=== PATIENT | male | born 1990 | race Caucasian/White ===

== ENCOUNTER 2018-02-22 14:49 | Inpatient (IN) | payer OTHER ==
--- NOTE | 2018-02-22 16:28 | RAD ---
Date of service: 02/22/2018 HISTORY: SOB COMPARISON: No prior. TECHNIQUE: Chest PA and lateral FINDINGS: LUNGS: No active pulmonary disease. PLEURA: No significant pleural effusion identified. No pneumothorax apparent. CARDIOVASCULAR: No aortic atherosclerotic calcification present. Normal cardiac size. No pulmonary vascular congestion. OSSEOUS STRUCTURES: No significant abnormalities. VISUALIZED UPPER ABDOMEN: Normal. OTHER FINDINGS: None. IMPRESSION: No active disease.
[2018-02-22 16:48] LABS: BASO % 0.6 % (0.0-2.0); HEMOGLOBIN 15.2 g/dL (12.0-18.0); LYMPH # 0.9 K/uL (1.0-4.3); LYMPH % 13.2 % (20.0-40.0); MEAN CELL VOLUME 80.5 fL (80.0-94.0); MEAN CORPUSCULAR HEMOGLOBIN 27.8 pg (27.0-31.0); MEAN CORPUSCULAR HGB CONC 34.5 g/dL (33.0-37.0); MEAN PLATELET VOLUME 6.9 fL (7.2-11.7); MONO # 0.5 K/uL (0.0-0.8); MONO % 6.8 % (0.0-10.0); NEUT # 5.7 K/uL (1.8-7.0); NEUT % 79.4 % (50.0-75.0); NRBC % 0.3 % (0.0-2.0); RBC 5.48 Mil/uL (4.40-5.90); RED CELL DISTRIBUTION WIDTH 12.8 % (11.5-14.5); WHITE BLOOD COUNT 7.2 K/uL (4.8-10.8)
[2018-02-22 16:50] LABS: URINE BILIRUBIN NEGATIVE (NEGATIVE); URINE BLOOD 1+ (NEGATIVE); URINE CLARITY Clear (Clear); URINE COLOR Yellow (YELLOW); URINE GLUCOSE (UA) NORMAL (Normal); URINE LEUKOCYTE ESTERASE NEG Leu/uL (Negative); URINE PROTEIN NEGATIVE (NEGATIVE)
[2018-02-22 17:05] LABS: ALB/GLOB RATIO 1.4 (1.0-2.1); ALBUMIN 4.5 g/dL (3.5-5.0); ALT/SGPT 69 U/L (21-72); AST/SGOT 63 U/L (17-59); BLOOD UREA NITROGEN 14 mg/dL (9-20); CALCIUM 8.9 mg/dl (8.6-10.4); GFR NON-AFRICAN AMERICAN > 60
--- NOTE | 2018-02-22 17:09 | C.PDOC ---
History Of Present Illness Patient is a 27 year old male who presents to the ED for evaluation of an undulating fever with temperature spiking to 104 degrees for the past 10-14 days. Patient was in [place] 2 weeks prior and lives in an edemic area known for typhoid and malaria. He was seen at his PCP Dr. Abreu's office earlier today where his fever spiked to 103 degree and he was instructed to come to the ED. Patient denies any cough, SOB, nausea, vomiting, diarrhea, headache, sore throat, or CP. Time Seen by Provider: 02/22/18 15:55 Chief Complaint (Nursing): Fever History Per: Patient History/Exam Limitations: no limitations Onset/Duration Of Symptoms: Days (10-14) Current Symptoms Are (Timing): Still Present Associated Symptoms: Fever. denies: Chills, Cough, Nausea, Vomiting, Diarrhea Recent travel outside of the [place]: Yes ([place]) Additional History Per: Patient Past Medical History Reviewed: Historical Data, Nursing Documentation, Vital Signs Vital Signs: Last Vital Signs Temp 99.5 F 02/22/18 15:15 Pulse 110 H 02/22/18 15:15 Resp 18 02/22/18 15:15 BP 115/77 02/22/18 15:15 Pulse Ox 99 02/22/18 15:15 - Medical History PMH: No Chronic Diseases Surgical History: No Surg Hx Family History: States: Unknown Family Hx - Social History Hx Alcohol Use: No Hx Substance Use: No Review Of Systems Constitutional: Positive for: Fever. Negative for: Chills Cardiovascular: Negative for: Chest Pain Respiratory: Negative for: Cough, Shortness of Breath, Other (sore throat ) Gastrointestinal: Negative for: Nausea, Vomiting, Abdominal Pain, Diarrhea Neurological: Negative for: Headache Physical Exam - Physical Exam Appears: Non-toxic, No Acute Distress, Other (dark skin male ) Skin: Normal Color, Warm, Dry Head: Atraumatic, Normacephalic Eye(s): bilateral: Normal Inspection, PERRL, EOMI Oral Mucosa: Moist Neck: Supple Chest: Symmetrical Cardiovascular: Rhythm Regular Respiratory: Normal Breath Sounds, No Rales, No Rhonchi, No Wheezing Gastrointestinal/Abdominal: Soft Extremity: Normal ROM Neurological/Psych: Oriented x3, Normal Speech, Normal Cognition Gait: Steady ED Course And Treatment - Laboratory Results Result Diagrams: 02/22/18 16:40 02/22/18 16:40 Lab Interpretation: Abnormal (trop 0.2610, BNP 757) ECG: Interpreted By Me ECG Rhythm: Sinus Tachycardia ECG Interpretation: Abnormal Rate From EC O2 Sat by Pulse Oximetry: 99 Pulse Ox Interpretation: Normal - Radiology CXR: Interpreted by Me CXR Interpretation: Yes: No Acute Disease Reevaluation Time: 17:09 Reassessment Condition: Improved - Physician Consult Information Outcome Of Conversation: 1700: d/w anita Marques to d/c on Cipro PO and opt f/u of thin smear and salmonella titers. 1830: d/w anita Walker to admit with positive trop/bnp Medical Decision Making Medical Decision Making: suspect malaria/babesiosis or typhoid fever, likely due to endemic area immigrated 2 wks ago + trop/bnp suspicious for endocarditis. Disposition Doctor Will See Patient In The: Hospital Counseled Patient/Family Regarding: Studies Performed, Diagnosis - Disposition Referrals: [facility] [Outside] [facility] [Outside] [facility] [Outside] Lorie Abreu MD [Staff Provider] - Disposition: HOME/ ROUTINE Disposition Time: 17:11 Condition: GOOD Additional Instructions: tylenol 1000 mg or Motrin/Advil 600 mg every 6 hours as needed for fevers Continue Cipro 750 mg twice a day for 2 weeks follow-up Blood cultures, blood smears for parasites and Salmonella titers w Dr. Abreu's office. Prescriptions: Ciprofloxacin HCl [Cipro] 750 mg PO BID 14 Days tablet Instructions: Fever of Unknown Origin (DC), Typhoid and Paratyphoid Fever (DC), Malaria (DC) Forms: [employer] ([place]) - Clinical Impression Clinical Impression: Undulant fever, NSTEMI (non-ST elevated myocardial infarction) - Scribe Statement The provider has reviewed the documentation as recorded by the Scribe Provider Attestation: Lesley Ayala All medical record entries made by the Scribe were at my direction and personally dictated by me. I have reviewed the chart and agree that the record accurately reflects my personal performance of the history, physical exam, medical decision making, and the department course for this patient. I have also personally directed, reviewed, and agree with the discharge instructions and disposition.
[2018-02-22 17:31] LABS: B-TYPE NATRIURETIC PEPTIDE 757 pg/mL (0-450)
--- NOTE | 2018-02-22 21:02 | CP.PCM.HP ---
History of Present Illness - History of Present Illness History of Present Illness: Is chief complaint: Fever intermittent for 10 days duration. HPI: 27-year-old male with no significant past medical history From [place] recently weeks ago. After he came to the [place], started having some severe pain in the abdomen, nausea vomiting. He also had a fever at the time. He went to the urgent care, given antibiotic but the patient was not taking. He only taking that medicine for fever. He started having increasing fever again. Intermittent fever. Associate with chills and sweating. He also had a fever here today with the. Patient also has some headache Neck pain noted now. fever noted The past medical history No surgical history Denies any alcohol No smoking No family history A review of systems: Headache noted history of nausea vomiting noted. And recurrent fever chills no urinary discomfort. Yellow discoloration urine noted On examination: Patient is currently sweating. Chest clear Abdomen soft Nontender Edema negative Tachycardia noted. 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 cannot ruled out ?typhoid discussed with id will start antibiotic malarial smear stool w/u echo cardiology ID Present on Admission - Present on Admission Any Indicators Present on Admission: No History of DVT/PE: No History of Uncontrolled Diabetes: No Urinary Catheter: No Decubitus Ulcer Present: No Past Patient History - Past Social History Smoking Status: Never Smoked - PSYCHIATRIC Hx Substance Use: No - SURGICAL HISTORY Hx Surgeries: No Meds Home Medications: Home Medication List Medication Instructions Recorded Confirmed Type Ciprofloxacin HCl [Cipro] 750 mg PO BID 14 Days tablet 02/22/18 Rx Allergies/Adverse Reactions: Allergies Allergy/AdvReac Type Severity Reaction Status Date / Time No Known Allergies Allergy Verified 02/22/18 15:19 Results - Vital Signs Recent Vital Signs: Last Vital Signs Temp 102.4 F H 02/22/18 19:48 Pulse 92 H 02/22/18 19:48 Resp 24 02/22/18 19:48 BP 107/65 02/22/18 19:48 Pulse Ox 97 02/22/18 19:48 - Labs Result Diagrams: 02/22/18 16:40 02/22/18 16:40 Labs: Laboratory Results - last 24 hr 02/22/18 02/22/18 02/22/18 16:40 16:40 16:40 WBC 7.2 RBC 5.48 Hgb 15.2 Hct 44.1 MCV 80.5 MCH 27.8 MCHC 34.5 RDW 12.8 Plt Count 258 MPV 6.9 L Neut % (Auto) 79.4 H Lymph % (Auto) 13.2 L [place] % (Auto) 6.8 Eos % (Auto) 0.0 Baso % (Auto) 0.6 Neut # (Auto) 5.7 Lymph # (Auto) 0.9 L [place] # (Auto) 0.5 Eos # (Auto) 0.0 Baso # (Auto) 0.0 Sodium 137 Potassium 3.5 L Chloride 101 Carbon Dioxide 26 Anion Gap 14 BUN 14 Creatinine 1.0 Est GFR ( Amer) > 60 Est GFR (Non-Af Amer) > 60 Random Glucose 148 H Calcium 8.9 Total Bilirubin 1.9 H AST 63 H ALT 69 Alkaline Phosphatase 106 Troponin I 0.2610 H* NT-Pro-B Natriuret Pep 757 H Total Protein 7.8 Albumin 4.5 Globulin 3.3 Albumin/Globulin Ratio 1.4 Urine Color Yellow Urine Clarity Clear Urine pH 5.0 Ur Specific [place] 1.012 Urine Protein Negative Urine Glucose (UA) Normal Urine Ketones Negative Urine Blood 1+ H Urine Nitrate Negative Urine Bilirubin Negative Urine Urobilinogen 4.0 Ur Leukocyte Esterase Neg Urine WBC (Auto) 1 Urine RBC (Auto) 1
[2018-02-22] MEDS ORDERED: Sodium Chloride 0.9% 1,000 ML ONE (21:34)
[2018-02-22] MEDS: Sodium Chloride 0.9% 1,000 ML IV SCH (21:41)
[2018-02-22] MEDS: cefTRIAXone 2 GM IN NS 2 GM/100 ML BAG IVPB SCH (21:41)
[2018-02-22 22:15] LABS: INTRACELLULAR PARASITE NEGATIVE (NEGATIVE)
[2018-02-23 01:27] LABS: CK-MB < 0.22 ng/mL (0.0-3.38)
[2018-02-23] MEDS: Sodium Chloride 0.9% 1,000 ML IV SCH ×3 (06:56→20:26)
[2018-02-23 07:08] LABS: BASO % 0.6 % (0.0-2.0); HEMOGLOBIN 15.8 g/dL (12.0-18.0); LYMPH # 1.1 K/uL (1.0-4.3); LYMPH % 14.4 % (20.0-40.0); MEAN CELL VOLUME 80.9 fL (80.0-94.0); MEAN CORPUSCULAR HEMOGLOBIN 28.4 pg (27.0-31.0); MEAN CORPUSCULAR HGB CONC 35.1 g/dL (33.0-37.0); MEAN PLATELET VOLUME 8.1 fL (7.2-11.7); MONO # 0.6 K/uL (0.0-0.8); MONO % 8.5 % (0.0-10.0); NEUT # 5.7 K/uL (1.8-7.0); NEUT % 76.5 % (50.0-75.0); NRBC % 0.2 % (0.0-2.0); RBC 5.56 Mil/uL (4.40-5.90); RED CELL DISTRIBUTION WIDTH 12.8 % (11.5-14.5); WHITE BLOOD COUNT 7.5 K/uL (4.8-10.8)
[2018-02-23 07:24] LABS: URINE BILIRUBIN NEGATIVE (NEGATIVE); URINE BLOOD 1+ (NEGATIVE); URINE CLARITY Clear (Clear); URINE COLOR Yellow (YELLOW); URINE GLUCOSE (UA) NORMAL (Normal); URINE LEUKOCYTE ESTERASE NEG Leu/uL (Negative); URINE PROTEIN NEGATIVE (NEGATIVE)
[2018-02-23 08:14] LABS: ALB/GLOB RATIO 1.3 (1.0-2.1); ALBUMIN 4.8 g/dL (3.5-5.0); ALT/SGPT 83 U/L (21-72); AST/SGOT 78 U/L (17-59); BLOOD UREA NITROGEN 11 mg/dL (9-20); CALCIUM 8.9 mg/dl (8.6-10.4); GFR NON-AFRICAN AMERICAN > 60
--- NOTE | 2018-02-23 08:54 | CP.PCM.PN ---
Subjective - Date & Time of Evaluation Date of Evaluation: 02/23/18 Time of Evaluation: 08:52 - Subjective Subjective: Patient is morning having again fever. No nausea, no vomiting noted. Less headache. Fever of 102.3 F Plan examination: Vital signs stable otherwise. Mild tachycardia noted. Chest good air entry Regular heart sounds Soft and nontender Echocardiogram currently pending. The blood culture showing evidence of gram-negative rods in both anaerobic bottles identification pending. Currently patient is on antibiotic. Awaiting for the results of the ID. Echocardiogram will follow the patient Patient is a 27 with no past medical history admitted with febrile illness with positive blood culture, will follow the patient Objective - Vital Signs/Intake and Output Vital Signs (last 24 hours): Temp Pulse Resp BP Pulse Ox 102.1 F H 85 20 114/66 99 02/23/18 06:56 02/23/18 03:47 02/23/18 03:47 02/23/18 03:47 02/23/18 03:47 Intake and Output: 02/23/18 02/23/18 06:59 18:59 Intake Total 740 Output Total 700 Balance 40 - Medications Medications: Current Medications Acetaminophen (Tylenol 325mg Tab) 650 mg PO Q6 PRN PRN Reason: Temperature Last Admin: 02/23/18 06:56 Dose: 650 mg Ceftriaxone Sodium (Rocephin 2 Gm Ivpb) 2 gm in 100 mls @ 100 mls/hr IVPB Q12 CARIDAD; Protocol Last Admin: 02/22/18 21:41 Dose: 100 mls/hr Sodium Chloride (Sodium Chloride 0.9%) 1,000 mls @ 100 mls/hr IV .Q10H CARIDAD Last Admin: 02/23/18 06:56 Dose: 100 mls/hr Pantoprazole Sodium (Protonix Inj) 40 mg IVP DAILY CARIDAD - Labs Labs: 02/23/18 06:59 02/23/18 06:59
[2018-02-23] MEDS ORDERED: Potassium Chloride 20 mEq/15 ml LIQ UD PO ONE (09:30)
[2018-02-23] MEDS: cefTRIAXone 2 GM IN NS 2 GM/100 ML BAG IVPB SCH (10:26)
[2018-02-23] MEDS ORDERED: Amikacin Sulfate 500 MG in Sodium Chloride 0.9% 250 ML IVPB ONE (10:30)
--- NOTE | 2018-02-23 15:06 | CARD ---
APPROVED REPORT Date of service: 02/23/2018 EXAM: Two-dimensional and M-mode echocardiogram with Doppler and color Doppler. Other Information Quality : GoodRhythm : INDICATION elevated troponin / fever 2D DIMENSIONS IVSd0.9 (0.7-1.1cm)Aortic Root (2D)2.6 (2.0-3.7cm) LVDd4.4 (3.9-5.9cm)PWd0.7 (0.7-1.1cm) LA [id number] (18-58mL)LVDs2.6 (2.5-4.0cm) FS (%) 40.8 %LVEF (%)71.8 (>50%) LVEF (Navas's)70.20 %IVC0.00 cm M-Mode DIMENSIONS RVDd1.55 (2.1-3.2cm)Left Atrium (MM)3.14 (2.5-4.0cm) IVSd0.81 (0.7-1.1cm)Aortic Root2.60 (2.2-3.7cm) LVDd4.70 (4.0-5.6cm)Aortic Cusp Exc.1.97 (1.5-2.0cm) PWd0.66 (0.7-1.1cm)FS (%) 43 % LVDs2.68 (2.0-3.8cm)LVEF (%)74 (>50%) Mitral Valve MV E Ztjqivze37.4cm/sMV A Piyjtfez61.6cm/sE/A ratio1.2 TDI Lateral E' Peak V13.39cm/sMedial E' Peak V13.64cm/sE/Lateral E'6.9 E/Medial E'6.8 Tricuspid Valve TR Peak [id number]/sTR Peak Gr.[id number] LEFT VENTRICLE The left ventricle is normal size. There is normal left ventricular wall thickness. The left ventricular function is normal. The left ventricular ejection fraction is within the normal range. No regional wall motion abnormalities noted. The left ventricular diastolic function is normal. No left ventricle thrombus noted on this study. There is no ventricular septal defect visualized. There is no left ventricular aneurysm. There is no mass noted in the left ventricle. RIGHT VENTRICLE The right ventricle is normal size. There is normal right ventricular wall thickness. The right ventricular systolic function is normal. ATRIA The left atrium size is normal. The right atrium size is normal. The interatrial septum is intact with no evidence for an atrial septal defect. AORTIC VALVE The aortic valve is normal in structure and function. No aortic regurgitation is present. There is no aortic valvular stenosis. There is no aortic valvular vegetation. MITRAL VALVE The mitral valve is normal in structure and function. There is no evidence of mitral valve prolapse. There is no mitral valve stenosis. There is suspicious looking echogenic mass on AML, please confirm with YVONNE TRICUSPID VALVE The tricuspid valve is normal in structure and function. There is no tricuspid valve regurgitation noted. There is no tricuspid valve prolapse or vegetation. There is no tricuspid valve stenosis. PULMONIC VALVE The pulmonary valve is normal in structure and function. There is no pulmonic valvular regurgitation. There is no pulmonic valvular stenosis. GREAT VESSELS The aortic root is normal in size. The ascending aorta is normal in size. The pulmonary artery is normal. The IVC is normal in size and collapses >50% with inspiration. PERICARDIAL EFFUSION The pericardium appears normal. There is no pleural effusion. <Conclusion> The left ventricular function is normal. The left ventricular ejection fraction is within the normal range. No regional wall motion abnormalities noted. There is suspicious looking echogenic mass on AML, please confirm with YVONNE
--- NOTE | 2018-02-23 15:43 | CP.PCM.CON ---
<Nicole Del Cid - Last Filed: 02/23/18 15:38> History of Present Illness - History of Present Illness History of Present Illness: Consult note for cardiology 27 year old male with no significant past medical history is admitted for fever. Cardiology consulted for elevated troponins. Patient states that he returned from [place] in middle of January. One week later, he developed fever. He was seen by physician and was given Cipro which he did not continue taking as his fever was not improving. Patient then came to hospital. Patient states that he develops MOORE when his fever is high. Patient also states he developed neck pain yesterday prior to coming to hospital. Pt denies having any abdominal pain, N/v/D/C, CP, SOB, coughing, sinus congestion, confusion, LE swelling or pain, night sweats. Pt noted to febrile overnight with temp of 102. PMHx: denies Sx: denies Meds: Ibuprofen, Cipro Social; denies tobacco and IV drug use. Admits ot ETOH use occasionally Review of Systems - Constitutional Constitutional: Fever. absent: Chills - EENT Eyes: absent: Blurred Vision, Change in Vision Nose/Mouth/Throat: absent: Nasal Congestion, Nasal Discharge, Sore Throat - Cardiovascular Cardiovascular: absent: Chest Pain, Dyspnea, Edema, Leg Edema, Lightheadedness, Pedal Edema - Respiratory Respiratory: absent: Cough, Dyspnea, Wheezing, Chest Congestion - Gastrointestinal Gastrointestinal: absent: Abdominal Pain, Constipation, Diarrhea, Nausea, Vomiting - Genitourinary Genitourinary: absent: Dysuria, Hematuria, Urinary Frequency, Urinary Urgency - Musculoskeletal Musculoskeletal: absent: Back Pain, Numbness, Stiffness, Tingling - Integumentary Integumentary: absent: Acne, Lesions, Rash - Neurological Neurological: absent: Dizziness, Syncope, Tingling, Weakness - Psychiatric Psychiatric: absent: Anxiety, Depression Past Patient History - Past Medical History & Family History Past Medical History?: No - Past Social History Smoking Status: Never Smoked Chewing Tobacco Use: No Cigar Use: No Alcohol: Social Drugs: Denies - CARDIAC Hx Cardiac Disorders: No Hx Heart Attack: Yes (Admitting Dx: NSTEMi) - PULMONARY Hx Respiratory Disorders: No - NEUROLOGICAL Hx Neurological Disorder: No - HEENT Hx HEENT Problems: No - RENAL Hx Chronic Kidney Disease: No - ENDOCRINE/METABOLIC Hx Endocrine Disorders: No - HEMATOLOGICAL/ONCOLOGICAL Hx Blood Disorders: No - INTEGUMENTARY Hx Dermatological Problems: No - MUSCULOSKELETAL/RHEUMATOLOGICAL Hx Falls: No - GASTROINTESTINAL Hx Gastrointestinal Disorders: No - GENITOURINARY/GYNECOLOGICAL Hx Genitourinary Disorders: No - PSYCHIATRIC Hx Psychophysiologic Disorder: No Hx Substance Use: No - SURGICAL HISTORY Hx Surgeries: No - ANESTHESIA Hx Anesthesia: No Meds Home Medications: Home Medication List Medication Instructions Recorded Confirmed Type Ciprofloxacin HCl [Cipro] 750 mg PO BID 14 Days tablet 02/22/18 Rx Allergies/Adverse Reactions: Allergies Allergy/AdvReac Type Severity Reaction Status Date / Time No Known Allergies Allergy Verified 02/22/18 15:19 - Medications Medications: Current Medications Acetaminophen (Tylenol 325mg Tab) 650 mg PO Q6 PRN PRN Reason: Temperature Last Admin: 02/23/18 13:10 Dose: 650 mg Ceftriaxone Sodium (Rocephin 2 Gm Ivpb) 2 gm in 100 mls @ 100 mls/hr IVPB Q12 [facility]; Protocol Last Admin: 02/23/18 10:26 Dose: 100 mls/hr Sodium Chloride (Sodium Chloride 0.9%) 1,000 mls @ 100 mls/hr IV .Q10H [facility] Last Admin: 02/23/18 06:56 Dose: 100 mls/hr Pantoprazole Sodium (Protonix Inj) 40 mg IVP DAILY [facility] Last Admin: 02/23/18 10:17 Dose: 40 mg Physical Exam - Constitutional Appears: No Acute Distress - Head Exam Head Exam: ATRAUMATIC, NORMOCEPHALIC - ENT Exam ENT Exam: Mucous Membranes Moist - Respiratory Exam Respiratory Exam: Clear to Auscultation Bilateral. absent: Accessory Muscle Use, Rales, Rhonchi, Wheezes, Respiratory Distress - Cardiovascular Exam Cardiovascular Exam: REGULAR RHYTHM, +S1, +S2. absent: Diastolic murmur, Gallop, Rubs, Systolic Murmur - GI/Abdominal Exam GI & Abdominal Exam: Normal Bowel Sounds, Soft. absent: Distended, Firm, Guarding, Rigid, Tenderness - Extremities Exam Extremities exam: Negative for: pedal edema, tenderness - Neurological Exam Neurological exam: Alert, Oriented x3 - Psychiatric Exam Psychiatric exam: Normal Affect, Normal Mood - Skin Skin Exam: Dry, Intact, Normal Color Results - Vital Signs Recent Vital Signs: Last Vital Signs Temp 100.8 F H 02/23/18 14:30 Pulse 114 H 02/23/18 14:30 Resp 22 02/23/18 14:30 BP 96/65 L 02/23/18 14:30 Pulse Ox 99 02/23/18 14:30 - Labs Result Diagrams: 02/23/18 06:59 02/23/18 06:59 Labs: Laboratory Results - last 24 hr 02/22/18 02/22/18 02/22/18 16:40 16:40 16:40 WBC 7.2 RBC 5.48 Hgb 15.2 Hct 44.1 MCV 80.5 MCH 27.8 MCHC 34.5 RDW 12.8 Plt Count 258 MPV 6.9 L Neut % (Auto) 79.4 H Lymph % (Auto) 13.2 L [place] % (Auto) 6.8 Eos % (Auto) 0.0 Baso % (Auto) 0.6 Neut # (Auto) 5.7 Lymph # (Auto) 0.9 L [place] # (Auto) 0.5 Eos # (Auto) 0.0 Baso # (Auto) 0.0 Sodium 137 Potassium 3.5 L Chloride 101 Carbon Dioxide 26 Anion Gap 14 BUN 14 Creatinine 1.0 Est GFR ( Amer) > 60 Est GFR (Non-Af Amer) > 60 POC Glucose (mg/dL) Random Glucose 148 H Lactic Acid Calcium 8.9 Phosphorus Magnesium Total Bilirubin 1.9 H AST 63 H ALT 69 Alkaline Phosphatase 106 Total Creatine Kinase CK-MB (Mass) Troponin I 0.2610 H* NT-Pro-B Natriuret Pep 757 H Total Protein 7.8 Albumin 4.5 Globulin 3.3 Albumin/Globulin Ratio 1.4 Urine Color Yellow Urine Clarity Clear Urine pH 5.0 Ur Specific [place] 1.012 Urine Protein Negative Urine Glucose (UA) Normal Urine Ketones Negative Urine Blood 1+ H Urine Nitrate Negative Urine Bilirubin Negative Urine Urobilinogen 4.0 Ur Leukocyte Esterase Neg Urine WBC (Auto) 1 Urine RBC (Auto) 1 Blood Parasites Smear 02/22/18 02/23/18 02/23/18 21:13 00:31 06:59 WBC 7.5 RBC 5.56 Hgb 15.8 Hct 45.0 MCV 80.9 MCH 28.4 MCHC 35.1 RDW 12.8 Plt Count 232 MPV 8.1 Neut % (Auto) 76.5 H Lymph % (Auto) 14.4 L [place] % (Auto) 8.5 Eos % (Auto) 0.0 Baso % (Auto) 0.6 Neut # (Auto) 5.7 Lymph # (Auto) 1.1 [place] # (Auto) 0.6 Eos # (Auto) 0.0 Baso # (Auto) 0.0 Sodium Potassium Chloride Carbon Dioxide Anion Gap BUN Creatinine Est GFR ( Amer) Est GFR (Non-Af Amer) POC Glucose (mg/dL) Random Glucose Lactic Acid Calcium Phosphorus Magnesium Total Bilirubin AST ALT Alkaline Phosphatase Total Creatine Kinase 50 L CK-MB (Mass) < 0.22 Troponin I 0.2310 H* NT-Pro-B Natriuret Pep Total Protein Albumin Globulin Albumin/Globulin Ratio Urine Color Urine Clarity Urine pH Ur Specific [place] Urine Protein Urine Glucose (UA) Urine Ketones Urine Blood Urine Nitrate Urine Bilirubin Urine Urobilinogen Ur Leukocyte Esterase Urine WBC (Auto) Urine RBC (Auto) Blood Parasites Smear Negative 02/23/18 02/23/18 02/23/18 06:59 06:59 06:59 WBC RBC Hgb Hct MCV MCH MCHC RDW Plt Count MPV Neut % (Auto) Lymph % (Auto) [place] % (Auto) Eos % (Auto) Baso % (Auto) Neut # (Auto) Lymph # (Auto) [place] # (Auto) Eos # (Auto) Baso # (Auto) Sodium 136 Potassium 3.5 L Chloride 98 Carbon Dioxide 26 Anion Gap 15 BUN 11 Creatinine 1.0 Est GFR ( Amer) > 60 Est GFR (Non-Af Amer) > 60 POC Glucose (mg/dL) Random Glucose 106 D Lactic Acid 1.4 Calcium 8.9 Phosphorus 2.8 Magnesium 2.1 Total Bilirubin 1.6 H AST 78 H D ALT 83 H D Alkaline Phosphatase 132 H D Total Creatine Kinase CK-MB (Mass) Troponin I 0.2200 H* NT-Pro-B Natriuret Pep Total Protein 8.4 H Albumin 4.8 Globulin 3.7 Albumin/Globulin Ratio 1.3 Urine Color Yellow Urine Clarity Clear Urine pH 6.0 Ur Specific [place] 1.011 Urine Protein Negative Urine Glucose (UA) Normal Urine Ketones Trace Urine Blood 1+ H Urine Nitrate Negative Urine Bilirubin Negative Urine Urobilinogen 4.0 Ur Leukocyte Esterase Neg Urine WBC (Auto) 2 Urine RBC (Auto) 2 Blood Parasites Smear 02/23/18 07:28 WBC RBC Hgb Hct MCV MCH MCHC RDW Plt Count MPV Neut % (Auto) Lymph % (Auto) [place] % (Auto) Eos % (Auto) Baso % (Auto) Neut # (Auto) Lymph # (Auto) [place] # (Auto) Eos # (Auto) Baso # (Auto) Sodium Potassium Chloride Carbon Dioxide Anion Gap BUN Creatinine Est GFR ( Amer) Est GFR (Non-Af Amer) POC Glucose (mg/dL) 110 Random Glucose Lactic Acid Calcium Phosphorus Magnesium Total Bilirubin AST ALT Alkaline Phosphatase Total Creatine Kinase CK-MB (Mass) Troponin I NT-Pro-B Natriuret Pep Total Protein Albumin Globulin Albumin/Globulin Ratio Urine Color Urine Clarity Urine pH Ur Specific [place] Urine Protein Urine Glucose (UA) Urine Ketones Urine Blood Urine Nitrate Urine Bilirubin Urine Urobilinogen Ur Leukocyte Esterase Urine WBC (Auto) Urine RBC (Auto) Blood Parasites Smear Assessment & Plan - Assessment and Plan (Free Text) Assessment: 27 year old male with no significant past medical history is admitted for fever. Cardiology consulted for elevated troponins at 0.220. EKG showed Sinus tachycardia at 101. ProBNP noted to be elevated at 757. Fever - Blood cultures positive for gram - rods. pending sensitivities - Parasite screen negative - WBC count and lactic acid normal - Currently on Rocephin, tylenol and NS 100 cc Elevated troponin - Likely 2/2 fever and infection - Will check echo with concern for possible myopericarditis. Case discussed with Dr. Mahajan - Date & Time Date: 02/23/18 Time: 15:46 <Noe Mahajan - Last Filed: 02/24/18 07:48> Meds - Medications Medications: Current Medications Acetaminophen (Tylenol 325mg Tab) 650 mg PO Q6 PRN PRN Reason: Temperature Last Admin: 02/24/18 04:48 Dose: 650 mg Sodium Chloride (Sodium Chloride 0.9%) 1,000 mls @ 100 mls/hr IV .Q10H [facility] Last Admin: 02/24/18 03:15 Dose: Not Given Meropenem 2,000 mg/ Sodium (Chloride) 100 mls @ 100 mls/hr IVPB Q8H [facility]; Protocol Last Admin: 02/24/18 04:48 Dose: 100 mls/hr Ciprofloxacin (Cipro 400mg/200ml Dsw) 400 mg in 200 mls @ 133 mls/hr IVPB Q8 [facility]; Protocol Last Admin: 02/24/18 06:15 Dose: 133 mls/hr Pantoprazole Sodium (Protonix Inj) 40 mg IVP DAILY [facility] Last Admin: 02/23/18 10:17 Dose: 40 mg Results - Vital Signs Recent Vital Signs: Last Vital Signs Temp 101.6 F H 02/24/18 05:48 Pulse 87 02/24/18 04:00 Resp 22 02/24/18 04:00 BP 107/60 02/24/18 04:00 Pulse Ox 98 02/24/18 04:00 - Labs Result Diagrams: 02/24/18 06:46 02/23/18 06:59 Labs: Laboratory Results - last 24 hr 02/23/18 02/23/18 02/24/18 06:59 06:59 06:46 WBC 4.2 L RBC 4.14 L Hgb 11.6 L D Hct 33.5 L MCV 80.9 MCH 28.0 MCHC 34.6 RDW 12.6 Plt Count 156 MPV 7.6 Neut % (Auto) 81.6 H Lymph % (Auto) 13.0 L [place] % (Auto) 4.2 Eos % (Auto) 0.1 Baso % (Auto) 1.1 Neut # (Auto) 3.4 Lymph # (Auto) 0.5 L [place] # (Auto) 0.2 Eos # (Auto) 0.0 Baso # (Auto) 0.0 Sodium 136 Potassium 3.5 L Chloride 98 Carbon Dioxide 26 Anion Gap 15 BUN 11 Creatinine 1.0 Est GFR ( Amer) > 60 Est GFR (Non-Af Amer) > 60 Random Glucose 106 D Calcium 8.9 Phosphorus 2.8 Magnesium 2.1 Total Bilirubin 1.6 H AST 78 H D ALT 83 H D Alkaline Phosphatase 132 H D Troponin I 0.2200 H* Total Protein 8.4 H Albumin 4.8 Globulin 3.7 Albumin/Globulin Ratio 1.3 Urine Color Yellow Urine Clarity Clear Urine pH 6.0 Ur Specific [place] 1.011 Urine Protein Negative Urine Glucose (UA) Normal Urine Ketones Trace Urine Blood 1+ H Urine Nitrate Negative Urine Bilirubin Negative Urine Urobilinogen 4.0 Ur Leukocyte Esterase Neg Urine WBC (Auto) 2 Urine RBC (Auto) 2 Assessment & Plan - Assessment and Plan (Free Text) Assessment: Patient seen and evaluated with the director medical economics. 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 Eventhough positive Trops likely from myocardial iflammation, Will consider cardiac cath prior to discharge for a definitive diagnosis
--- NOTE | 2018-02-23 19:40 | CP.PCM.CON ---
History of Present Illness - History of Present Illness History of Present Illness: INFECTIOUS DISEASE CONSULTATION AL WILLAMS MD, FACP ICU 14-A 02/23/2017 CHART REVIEWED PT EXAMINED CASE DISCUSSED THIS PATIENT IS A 27 YEAR OLD MALE WHO IS ADMITTED WITH 15 DAYS OF FEVERS, AFTER RETURNING FROM [facility] ONE WEEK PRIOR. HE DID SEEK A MEDICAL EVALUATION AT A LOCAL "dOC IN A bOX" AND WAS GIVEN MEDICATIONS, INCLUDING ANTIBIOTICS(?) BUT HE SELF STOPPED SAME AFTER LACK OF INSTANT RESPONSE WITHIN 36 HOURS OR SO. BLOOD C/S WHERE REPORTED QUICKLY POSITIVE FROM THE BOTTLES FOR GRAM NEGATIVE RODS. HE PRESENTS WITH FEVERS UP AND DOWN, SOME SWEATS, ONLY SOFT STOOL-NO REAL DIARRHEA, AND NO DIFFICULTY URINATING. DENIED N,V,D,C,COUGH, ONLY ISSUES OF HEADACHES ON AND OFF WITH HIGH TEMPS. AN INFECTIOUS DISEASE CONSULTATION WAS REQUESTED FOR DIAGNOSIS AND TREATMENT OF HIS PRESENTATION-R/O SALMONELLA, SHIGELLA, ESBL BACTEREMIA-WITH OR WITHOUT ENDOCARDITIS. ROS: ABOVE DENIES ANY PREVIOUS MEDICAL PROBLEMS HE PRESENTS WITH FEVERS UP AND DOWN, SOME SWEATS, ONLY SOFT STOOL-NO REAL DIARRHEA, AND NO DIFFICULTY URINATING. DENIED N,V,D,C,COUGH, ONLY ISSUES OF HEADACHES ON AND OFF WITH HIGH TEMPS. 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 VSS: SEE TEMP EVALUATIONS AWAKE, ALERT TO PERSON, PLACE AND TIME CONJ PINKISH TO PALE MOUTH MOIST SUPPLE NECK CHEST CLEAR COR RR, NO OBVIOUS MURMURS PRESENTLY, BUT TO CHECK ECHO'S ABD SOFT VAGUE RUQ TENDERNESS EXT NO PERIPHERAL MANIFESTATIONS OF EMBOLIC PHENOMENON NEURO NO GROSS FOCI IMPRESSION: GRAM NEGATIVE BACTEREMIA AFTER VISITING [facility] IN AN EFFORT TO COVER A MULTITUDE OF BACTERIAL ISSUES AT PRESENT, TO CHANGE MEDC TO MERREM 2GM IVPG Q 8 HRS WITH CIPRO 400MG IVPG Q 8 HOURS. SEE EXTENSIVE LABS REVIEWED WITH MICROBIOLOGIST-THE GRAM NEGA ARE GROWING QUICKLY FROM THE BLOOD C/S BOTTLES! AWAITING CARDIOLOGY MANAGEMENT PLEASE ALERT ME TO ANY SIGNIFICANT ID/CLINICAL CHANGES. PROGNOSIS GUARDED AL WILLAMS MD, FACP Past Patient History - Past Medical History & Family History Past Medical History?: No - Past Social History Smoking Status: Never Smoked Chewing Tobacco Use: No Cigar Use: No Alcohol: Social Drugs: Denies - CARDIAC Hx Cardiac Disorders: No Hx Heart Attack: Yes (Admitting Dx: NSTEMi) - PULMONARY Hx Respiratory Disorders: No - NEUROLOGICAL Hx Neurological Disorder: No - HEENT Hx HEENT Problems: No - RENAL Hx Chronic Kidney Disease: No - ENDOCRINE/METABOLIC Hx Endocrine Disorders: No - HEMATOLOGICAL/ONCOLOGICAL Hx Blood Disorders: No - INTEGUMENTARY Hx Dermatological Problems: No - MUSCULOSKELETAL/RHEUMATOLOGICAL Hx Falls: No - GASTROINTESTINAL Hx Gastrointestinal Disorders: No - GENITOURINARY/GYNECOLOGICAL Hx Genitourinary Disorders: No - PSYCHIATRIC Hx Psychophysiologic Disorder: No Hx Substance Use: No - SURGICAL HISTORY Hx Surgeries: No - ANESTHESIA Hx Anesthesia: No Meds Home Medications: Home Medication List Medication Instructions Recorded Confirmed Type Ciprofloxacin HCl [Cipro] 750 mg PO BID 14 Days tablet 02/22/18 Rx Allergies/Adverse Reactions: Allergies Allergy/AdvReac Type Severity Reaction Status Date / Time No Known Allergies Allergy Verified 02/22/18 15:19 - Medications Medications: Current Medications Acetaminophen (Tylenol 325mg Tab) 650 mg PO Q6 PRN PRN Reason: Temperature Last Admin: 02/23/18 13:10 Dose: 650 mg Sodium Chloride (Sodium Chloride 0.9%) 1,000 mls @ 100 mls/hr IV .Q10H [facility] Last Admin: 02/23/18 06:56 Dose: 100 mls/hr Meropenem 2,000 mg/ Sodium (Chloride) 100 mls @ 100 mls/hr IVPB Q8H [facility]; Protocol Ciprofloxacin (Cipro 400mg/200ml Dsw) 400 mg in 200 mls @ 133 mls/hr IVPB Q8 [facility]; Protocol Pantoprazole Sodium (Protonix Inj) 40 mg IVP DAILY [facility] Last Admin: 02/23/18 10:17 Dose: 40 mg Results - Vital Signs Recent Vital Signs: Last Vital Signs Temp 103 F H 02/23/18 18:30 Pulse 85 02/23/18 18:30 Resp 19 02/23/18 18:30 BP 117/72 02/23/18 18:30 Pulse Ox 99 02/23/18 18:30 - Labs Result Diagrams: 02/23/18 06:59 02/23/18 06:59 Labs: Laboratory Results - last 24 hr 02/22/18 02/23/18 02/23/18 21:13 00:31 06:59 WBC 7.5 RBC 5.56 Hgb 15.8 Hct 45.0 MCV 80.9 MCH 28.4 MCHC 35.1 RDW 12.8 Plt Count 232 MPV 8.1 Neut % (Auto) 76.5 H Lymph % (Auto) 14.4 L [place] % (Auto) 8.5 Eos % (Auto) 0.0 Baso % (Auto) 0.6 Neut # (Auto) 5.7 Lymph # (Auto) 1.1 [place] # (Auto) 0.6 Eos # (Auto) 0.0 Baso # (Auto) 0.0 Sodium Potassium Chloride Carbon Dioxide Anion Gap BUN Creatinine Est GFR ( Amer) Est GFR (Non-Af Amer) POC Glucose (mg/dL) Random Glucose Lactic Acid Calcium Phosphorus Magnesium Total Bilirubin AST ALT Alkaline Phosphatase Total Creatine Kinase 50 L CK-MB (Mass) < 0.22 Troponin I 0.2310 H* Total Protein Albumin Globulin Albumin/Globulin Ratio Urine Color Urine Clarity Urine pH Ur Specific [place] Urine Protein Urine Glucose (UA) Urine Ketones Urine Blood Urine Nitrate Urine Bilirubin Urine Urobilinogen Ur Leukocyte Esterase Urine WBC (Auto) Urine RBC (Auto) Blood Parasites Smear Negative 02/23/18 02/23/18 02/23/18 06:59 06:59 06:59 WBC RBC Hgb Hct MCV MCH MCHC RDW Plt Count MPV Neut % (Auto) Lymph % (Auto) [place] % (Auto) Eos % (Auto) Baso % (Auto) Neut # (Auto) Lymph # (Auto) [place] # (Auto) Eos # (Auto) Baso # (Auto) Sodium 136 Potassium 3.5 L Chloride 98 Carbon Dioxide 26 Anion Gap 15 BUN 11 Creatinine 1.0 Est GFR ( Amer) > 60 Est GFR (Non-Af Amer) > 60 POC Glucose (mg/dL) Random Glucose 106 D Lactic Acid 1.4 Calcium 8.9 Phosphorus 2.8 Magnesium 2.1 Total Bilirubin 1.6 H AST 78 H D ALT 83 H D Alkaline Phosphatase 132 H D Total Creatine Kinase CK-MB (Mass) Troponin I 0.2200 H* Total Protein 8.4 H Albumin 4.8 Globulin 3.7 Albumin/Globulin Ratio 1.3 Urine Color Yellow Urine Clarity Clear Urine pH 6.0 Ur Specific [place] 1.011 Urine Protein Negative Urine Glucose (UA) Normal Urine Ketones Trace Urine Blood 1+ H Urine Nitrate Negative Urine Bilirubin Negative Urine Urobilinogen 4.0 Ur Leukocyte Esterase Neg Urine WBC (Auto) 2 Urine RBC (Auto) 2 Blood Parasites Smear 02/23/18 07:28 WBC RBC Hgb Hct MCV MCH MCHC RDW Plt Count MPV Neut % (Auto) Lymph % (Auto) [place] % (Auto) Eos % (Auto) Baso % (Auto) Neut # (Auto) Lymph # (Auto) [place] # (Auto) Eos # (Auto) Baso # (Auto) Sodium Potassium Chloride Carbon Dioxide Anion Gap BUN Creatinine Est GFR ( Amer) Est GFR (Non-Af Amer) POC Glucose (mg/dL) 110 Random Glucose Lactic Acid Calcium Phosphorus Magnesium Total Bilirubin AST ALT Alkaline Phosphatase Total Creatine Kinase CK-MB (Mass) Troponin I Total Protein Albumin Globulin Albumin/Globulin Ratio Urine Color Urine Clarity Urine pH Ur Specific [place] Urine Protein Urine Glucose (UA) Urine Ketones Urine Blood Urine Nitrate Urine Bilirubin Urine Urobilinogen Ur Leukocyte Esterase Urine WBC (Auto) Urine RBC (Auto) Blood Parasites Smear
[2018-02-23] MEDS: MEROPENEM IVPB SCH (20:25)
[2018-02-23] MEDS: SODIUM CHLORIDE 0.9% IVPB SCH (20:25)
[2018-02-23] MEDS: Ciprofloxacin 400mg/200ml D5W 400 MG/200 ML BAG IVPB SCH (22:30)
[2018-02-24] MEDS: Sodium Chloride 0.9% 1,000 ML IV SCH ×3 (03:15→13:57)
[2018-02-24] MEDS: MEROPENEM IVPB SCH ×3 (04:48→20:35)
[2018-02-24] MEDS: SODIUM CHLORIDE 0.9% IVPB SCH ×3 (04:48→20:35)
[2018-02-24] MEDS: Ciprofloxacin 400mg/200ml D5W 400 MG/200 ML BAG IVPB SCH ×3 (06:15→22:35)
[2018-02-24 06:51] LABS: BASO % 1.1 % (0.0-2.0); EOS % 0.1 % (0.0-4.0); LYMPH # 0.5 K/uL (1.0-4.3); MEAN CELL VOLUME 80.9 fL (80.0-94.0); MEAN CORPUSCULAR HGB CONC 34.6 g/dL (33.0-37.0); MEAN PLATELET VOLUME 7.6 fL (7.2-11.7); MONO # 0.2 K/uL (0.0-0.8); MONO % 4.2 % (0.0-10.0); NEUT # 3.4 K/uL (1.8-7.0); NEUT % 81.6 % (50.0-75.0); NRBC % 0.1 % (0.0-2.0); PLATELET COUNT 156 K/uL (130-400); RBC 4.14 Mil/uL (4.40-5.90); RED CELL DISTRIBUTION WIDTH 12.6 % (11.5-14.5); WHITE BLOOD COUNT 4.2 K/uL (4.8-10.8)
[2018-02-24 06:58] LABS: HEMOGLOBIN 11.6 g/dL (12.0-18.0)
[2018-02-24 07:53] LABS: HEPATITIS B SURFACE AG Negative (NEGATIVE)
[2018-02-24 07:59] LABS: HEPATITIS A IGM NEGATIVE (NEGATIVE); HEPATITIS B CORE AB NEGATIVE (NEGATIVE)
[2018-02-24 08:00] LABS: ALB/GLOB RATIO 1.1 (1.0-2.1); ALBUMIN 3.2 g/dL (3.5-5.0); ALT/SGPT 69 U/L (21-72); AST/SGOT 72 U/L (17-59); BLOOD UREA NITROGEN 10 mg/dL (9-20); CALCIUM 7.8 mg/dl (8.6-10.4); GFR NON-AFRICAN AMERICAN > 60
[2018-02-24] MEDS: Enoxaparin 30 mg Syringe SC SCH (09:44)
[2018-02-24 10:08] LABS: INTRACELLULAR PARASITE NEGATIVE (NEGATIVE)
--- NOTE | 2018-02-24 10:55 | CP.PCM.PN ---
Subjective - Date & Time of Evaluation Date of Evaluation: 02/24/18 Time of Evaluation: 10:53 - Subjective Subjective: Patient again had a fever last night. This morning low-grade fever noted. He is feeling much comfortable. No nausea no vomiting noted No abdominal pain. On examination: Vital signs stable. Chest good air entry Regular heart sounds. Nontender abdomen. No pedal edema Patient is making urine, regular bowel movements noted. The latest blood culture is negative, previously gram-negative bacteremia, ID pending Assessment and recommendation: 27-year-old male admitted with recurrent fever and sepsis and bacteremia Responding to the antibiotic right now. waiting for further report of the cultures. We will get a sonogram and CAT scan of the abdomen and will follow the patient, patient can be transferred to regular medical floor Objective - Vital Signs/Intake and Output Vital Signs (last 24 hours): Temp Pulse Resp BP Pulse Ox 100 F H 103 H 14 113/71 100 02/24/18 08:00 02/24/18 10:00 02/24/18 08:00 02/24/18 08:00 02/24/18 08:00 Intake and Output: 02/24/18 02/24/18 06:59 18:59 Intake Total 2120 540 Output Total 2000 Balance 120 540 - Medications Medications: Current Medications Acetaminophen (Tylenol 325mg Tab) 650 mg PO Q6 PRN PRN Reason: Temperature Last Admin: 02/24/18 04:48 Dose: 650 mg Enoxaparin Sodium (Lovenox) 30 mg SC DAILY [facility] Last Admin: 02/24/18 09:44 Dose: 30 mg Sodium Chloride (Sodium Chloride 0.9%) 1,000 mls @ 100 mls/hr IV .Q10H [facility] Last Admin: 02/24/18 03:15 Dose: Not Given Meropenem 2,000 mg/ Sodium (Chloride) 100 mls @ 100 mls/hr IVPB Q8H [facility]; Protocol Last Admin: 02/24/18 04:48 Dose: 100 mls/hr Ciprofloxacin (Cipro 400mg/200ml Dsw) 400 mg in 200 mls @ 133 mls/hr IVPB Q8 [facility]; Protocol Last Admin: 02/24/18 06:15 Dose: 133 mls/hr Pantoprazole Sodium (Protonix Inj) 40 mg IVP DAILY [facility] Last Admin: 02/24/18 09:45 Dose: 40 mg - Labs Labs: 02/24/18 06:46 02/24/18 06:46
[2018-02-24] MEDS ORDERED: Iohexol 240 (50 ml) PO ONE (12:00)
--- NOTE | 2018-02-24 13:52 | US ---
HISTORY: sepsis COMPARISON: None available. TECHNIQUE: Sonographic evaluation of the abdomen. FINDINGS: LIVER: Measures 16.3 cm in sagittal dimension. Echogenic liver may be seen in setting of hepatic parenchymal disease or fatty infiltration. No focal hepatic mass identified. The main portal vein appears patent with normal directional flow. No intrahepatic bile duct dilatation. GALLBLADDER: No gallstones. No gallbladder wall thickening. Negative sonographic Montiel's sign as assessed by the accounts executive. COMMON BILE DUCT: Measures 8 mm. PANCREAS: Not well visualized. RIGHT KIDNEY: Measures 11.0 x 4.3 x 5.0cm. No obstructing calculus or hydronephrosis identified. LEFT KIDNEY: Measures 11.4 x 4.4 x 4.1cm. No obstructing calculus or hydronephrosis identified. Probable nonobstructing 3 mm upper pole calculus. SPLEEN: Measures approximately 11.1 cm. AORTA: Limited views appear unremarkable. IVC: Limited views appear unremarkable. OTHER FINDINGS: None. IMPRESSION: Limited study. Dilated common bile duct. Echogenic liver may be seen in setting of hepatic parenchymal disease or fatty infiltration. Probable nonobstructing 3 mm left upper pole calculus.
--- NOTE | 2018-02-24 16:43 | CT ---
PROCEDURE: CT Abdomen and Pelvis without IV contrast. HISTORY: sepsis COMPARISON: None available TECHNIQUE: Contiguous axial images of the abdomen and pelvis. Oral contrast was administered. No IV contrast given. Coronal and Sagittal reformats generated and reviewed. Radiation dose: Total exam DLP = 715.08 mGy-cm. This CT exam was performed using one or more of the following dose reduction techniques: Automated exposure control, adjustment of the mA and/or kV according to patient size, and/or use of iterative reconstruction technique. FINDINGS: There is limited evaluation of the solid organs without the administration of IV contrast. LOWER THORAX: No visible consolidation, pleural effusion, or pneumothorax. Visualized portions of the heart appear within normal limits of size. Small hiatal hernia with evidence of gastroesophageal reflux. LIVER: Hepatomegaly. GALLBLADDER AND BILE DUCTS: Unremarkable unenhanced appearance. PANCREAS: Unremarkable unenhanced appearance. SPLEEN: Splenomegaly. ADRENALS: Unremarkable unenhanced appearance. KIDNEYS AND URETERS: Mild left hydronephrosis and hydroureter. No obstructing calculus identified. Punctate nonobstructing left renal calculus. BLADDER: The urinary bladder appears unremarkable. REPRODUCTIVE: Unremarkable. APPENDIX: The appendix appears within normal limits of caliber. No secondary signs of acute appendicitis. BOWEL: The stomach is nondistended. The bowel loops appear within normal limits of caliber without evidence of intestinal obstruction. Diffuse colonic wall thickening raises suspicion for colitis. Thickening of the terminal ileum concerning for ileitis. PERITONEUM: No significant free fluid. No definite free air. LYMPH NODES: Numerous enlarged mesenteric and pericecal lymph nodes measuring up to approximately 1.9 cm in short axis. VASCULATURE: No aortic aneurysm. No aortic atherosclerotic calcifications identified. BONES: No acute osseous abnormality is detected. OTHER FINDINGS: None. IMPRESSION: Wall thickening of the colon and terminal ileum raises suspicion for colitis/ileitis. Marked rectal wall thickening possibly secondary to proctitis. Recommend clinical correlation and follow-up including colonoscopy if indicated. Numerous enlarged mesenteric and pericecal lymph nodes measuring up to 1.9 cm in short axis. Correlate clinically. Mild left hydronephrosis and hydroureter without obstructing calculus identified. Punctate nonobstructing left renal calculus noted. Recommend correlation with urinalysis and follow-up cystoscopy/ureteroscopy if indicated. Splenomegaly. Hepatomegaly. Small hiatal hernia with evidence of gastroesophageal reflux. Additional findings as above.
--- NOTE | 2018-02-24 18:57 | CP.PCM.PN ---
Subjective - Date & Time of Evaluation Date of Evaluation: 02/24/18 Time of Evaluation: 18:35 - Subjective Subjective: INFECTIOUS DISEASE ICU PROGRESS NOTES AL WILLAMS MD, FACP ICU #[id number] 02/24/2018 CHART REVIEWED PT EXAMINED CASE DISCUSSED CLINICALLY THIS PT APPEARS LESS VISIBLY STRESSED/STRAINED. ABLE TO TALK AND APPEARS TO REASON DISCUSSED HIS DIAGNOSIS OF SALMONELL[employer]PE[employer]ES TYPHI WITH HIM, INCLUDING MODE OF ACQUIRING, TRANSMISSION - HUMAN TO HUMAN ORAL FECAL ROUTE, AND SEVERITY OF HIS CONDITION-EVEN TIME VERDIN AROUND THE 3RD WEEK OF ILLNESS, AT PRESENT. I NOTIFIED THE ICU TEAM STAFF EARLY THIS MORNING CONCERNIING HIS INITIAL VIVI GNOSIS AND THE NEED FOR CONTACT PRECAUTIONS. OFFICIAL SENSITIVITES WILL BE AVAILABLE MAYBE TOMORROW. WILL PRESENTLY CONTINUE MERREM AND CIPRO PENDING SAME. ABLE TO INGEST SOME, BREATHING BETTER, OFFERS NO COMPLAINTS AT ALL. HOLD FURTHER BLOOD C/S AT PRESENT UNLESS THE SITUATION CHANGES. REVIEWED ULTRASOUND AND CT RESULTS. THIS 3RD WEEK OF HIS CONDITION IS USUALLY STRESSFUL MEDICALLY, SO WATCH CA REFULLY. TO CHECK WITH MICRO TOMORROW. Objective - Vital Signs/Intake and Output Vital Signs (last 24 hours): Temp Pulse Resp BP Pulse Ox 102.3 F H 107 H 18 101/65 100 02/24/18 16:00 02/24/18 18:00 02/24/18 16:00 02/24/18 16:00 02/24/18 16:00 Intake and Output: 02/24/18 02/24/18 06:59 18:59 Intake Total 2120 1690 Output Total 2000 900 Balance 120 790 - Medications Medications: Current Medications Acetaminophen (Tylenol 325mg Tab) 650 mg PO Q6 PRN PRN Reason: Temperature Last Admin: 02/24/18 12:06 Dose: 650 mg Enoxaparin Sodium (Lovenox) 30 mg SC DAILY [facility] Last Admin: 02/24/18 09:44 Dose: 30 mg Sodium Chloride (Sodium Chloride 0.9%) 1,000 mls @ 100 mls/hr IV .Q10H [facility] Last Admin: 02/24/18 13:57 Dose: Not Given Meropenem 2,000 mg/ Sodium (Chloride) 100 mls @ 100 mls/hr IVPB Q8H [facility]; Protoc ol Last Admin: 02/24/18 11:49 Dose: 100 mls/hr Ciprofloxacin (Cipro 400mg/200ml Dsw) 400 mg in 200 mls @ 133 mls/hr IVPB Q12 [facility]; Protocol Pantoprazole Sodium (Protonix Inj) 40 mg IVP DAILY [facility] Last Admin: 02/24/18 09:45 Dose: 40 mg - Labs Labs: 02/24/18 06:46 02/24/18 06:46
--- NOTE | 2018-02-24 19:02 | CP.PCM.PN ---
Subjective - Date & Time of Evaluation Date of Evaluation: 02/24/18 Time of Evaluation: 12:05 - Subjective Subjective: Patient seen and evaluated denies chest pain and dyspnea Review of Systems - Constitutional Constitutional: Fever. absent: Chills - EENT Eyes: absent: Blurred Vision, Change in Vision Nose/Mouth/Throat: absent: Nasal Congestion, Nasal Discharge, Sore Throat - Cardiovascular Cardiovascular: absent: Chest Pain, Dyspnea, Edema, Leg Edema, Lightheadedness, Pedal Edema - Respiratory Respiratory: absent: Cough, Dyspnea, Wheezing, Chest Congestion - Gastrointestinal Gastrointestinal: absent: Abdominal Pain, Constipation, Diarrhea, Nausea, Vomiting - Genitourinary Genitourinary: absent: Dysuria, Hematuria, Urinary Frequency, Urinary Urgency - Musculoskeletal Musculoskeletal: absent: Back Pain, Numbness, Stiffness, Tingling - Integumentary Integumentary: absent: Acne, Lesions, Rash - Neurological Neurological: absent: Dizziness, Syncope, Tingling, Weakness - Psychiatric Psychiatric: absent: Anxiety, Depression Physical Exam - Constitutional Appears: No Acute Distress - Head Exam Head Exam: ATRAUMATIC, NORMOCEPHALIC - ENT Exam ENT Exam: Mucous Membranes Moist - Respiratory Exam Respiratory Exam: Clear to Auscultation Bilateral. absent: Accessory Muscle Use, Rales, Rhonchi, Wheezes, Respiratory Distress - Cardiovascular Exam Cardiovascular Exam: REGULAR RHYTHM, +S1, +S2. absent: Diastolic murmur, Gallop, Rubs, Systolic Murmur - GI/Abdominal Exam GI & Abdominal Exam: Normal Bowel Sounds, Soft. absent: Distended, Firm, Guarding, Rigid, Tenderness - Extremities Exam Extremities exam: Negative for: pedal edema, tenderness - Neurological Exam Neurological exam: Alert, Oriented x3 - Psychiatric Exam Psychiatric exam: Normal Affect, Normal Mood - Skin Skin Exam: Dry, Intact, Normal Color Objective - Vital Signs/Intake and Output Vital Signs (last 24 hours): Temp Pulse Resp BP Pulse Ox 102.3 F H 107 H 18 101/65 100 02/24/18 16:00 02/24/18 18:00 02/24/18 16:00 02/24/18 16:00 02/24/18 16:00 Intake and Output: 02/24/18 02/25/18 18:59 06:59 Intake Total 1690 Output Total 1400 Balance 290 - Medications Medications: Current Medications Acetaminophen (Tylenol 325mg Tab) 650 mg PO Q6 PRN PRN Reason: Temperature Last Admin: 02/24/18 18:40 Dose: 650 mg Enoxaparin Sodium (Lovenox) 30 mg SC DAILY [facility] Last Admin: 02/24/18 09:44 Dose: 30 mg Sodium Chloride (Sodium Chloride 0.9%) 1,000 mls @ 100 mls/hr IV .Q10H [facility] Last Admin: 02/24/18 13:57 Dose: Not Given Meropenem 2,000 mg/ Sodium (Chloride) 100 mls @ 100 mls/hr IVPB Q8H [facility]; Protocol Last Admin: 02/24/18 11:49 Dose: 100 mls/hr Ciprofloxacin (Cipro 400mg/200ml Dsw) 400 mg in 200 mls @ 133 mls/hr IVPB Q12 [facility]; Protocol Pantoprazole Sodium (Protonix Inj) 40 mg IVP DAILY [facility] Last Admin: 02/24/18 09:45 Dose: 40 mg - Labs Labs: 02/24/18 06:46 02/24/18 06:46 Assessment and Plan - Assessment and Plan (Free Text) Assessment: Patient seen and evaluated with the medical physicist. 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 Eventhough positive Trops likely from myocardial inflammation, Will consider cardiac cath prior to discharge for a definitive diagnosis
[2018-02-25] MEDS: Sodium Chloride 0.9% 1,000 ML IV SCH ×5 (04:00→19:15)
[2018-02-25] MEDS: MEROPENEM IVPB SCH ×3 (04:00→19:35)
[2018-02-25] MEDS: SODIUM CHLORIDE 0.9% IVPB SCH ×3 (04:00→19:35)
[2018-02-25 06:21] LABS: BASO % 0.7 % (0.0-2.0); HEMOGLOBIN 12.9 g/dL (12.0-18.0); LYMPH # 1.1 K/uL (1.0-4.3); LYMPH % 27.3 % (20.0-40.0); MEAN CELL VOLUME 79.7 fL (80.0-94.0); MEAN CORPUSCULAR HGB CONC 35.2 g/dL (33.0-37.0); MEAN PLATELET VOLUME 8.3 fL (7.2-11.7); MONO # 0.2 K/uL (0.0-0.8); MONO % 5.3 % (0.0-10.0); NEUT # 2.8 K/uL (1.8-7.0); NEUT % 66.7 % (50.0-75.0); NRBC % 0.3 % (0.0-2.0); PLATELET COUNT 142 K/uL (130-400); RBC 4.58 Mil/uL (4.40-5.90); RED CELL DISTRIBUTION WIDTH 12.5 % (11.5-14.5); WHITE BLOOD COUNT 4.1 K/uL (4.8-10.8)
[2018-02-25 06:38] LABS: ALB/GLOB RATIO 1.1 (1.0-2.1); ALBUMIN 3.4 g/dL (3.5-5.0); ALT/SGPT 90 U/L (21-72); AST/SGOT 106 U/L (17-59); BLOOD UREA NITROGEN 8 mg/dL (9-20); CALCIUM 8.3 mg/dl (8.6-10.4); GFR NON-AFRICAN AMERICAN > 60
--- NOTE | 2018-02-25 09:06 | CP.PCM.PN ---
Subjective - Date & Time of Evaluation Date of Evaluation: 02/25/18 Time of Evaluation: 09:02 - Subjective Subjective: Patient this morning had another episode of fever. But the temperature at this time is 101.3. He is feeling slightly better. He is not in any distress. But still feeling somewhat weakness. He is very concerned about his staying in the hospital, and also getting medications, and also the blood testing done. He is also very anxious about the overall prognosis. On examination: Vital signs stable. Chest good air entry. Regular heart sounds. Nontender abdomen. No pedal edema Patient had a CAT scan of the abdomen yesterday. CAT scan showing no evidence of any acute pathology except colitis in the ileal area and cecal Microbiology showing no evidence of Salmonella typhi. Assessment and recommendation: 27-year-old male admitted to the hospital with a severe sepsis and severe bacteremia. Salmonella/ typhoid infection. He still continues to have a fever. Patient may have underlying source the GI tract? or underlying multidrug-resistant but cannot be ruled out. Awaiting for antibiogram. We will continue the current antibiotic treatment. I discussed with the patient in detail. We will follow the patient Objective - Vital Signs/Intake and Output Vital Signs (last 24 hours): Temp Pulse Resp BP Pulse Ox 101.5 F H 76 20 110/70 99 02/25/18 07:21 02/25/18 04:00 02/25/18 04:00 02/25/18 06:00 02/25/18 04:00 Intake and Output: 02/25/18 02/25/18 06:59 18:59 Intake Total 1800 Output Total 1400 Balance 400 - Medications Medications: Current Medications Acetaminophen (Tylenol 325mg Tab) 650 mg PO Q6 PRN PRN Reason: Temperature Last Admin: 02/25/18 07:21 Dose: 650 mg Enoxaparin Sodium (Lovenox) 30 mg SC DAILY [facility] Last Admin: 02/24/18 09:44 Dose: 30 mg Sodium Chloride (Sodium Chloride 0.9%) 1,000 mls @ 100 mls/hr IV .Q10H [facility] Last Admin: 02/25/18 04:00 Dose: 100 mls/hr Meropenem 2,000 mg/ Sodium (Chloride) 100 mls @ 100 mls/hr IVPB Q8H [facility]; Protocol Last Admin: 02/25/18 04:00 Dose: 100 mls/hr Ciprofloxacin (Cipro 400mg/200ml Dsw) 400 mg in 200 mls @ 133 mls/hr IVPB Q12 [facility]; Protocol Last Admin: 02/24/18 22:35 Dose: 133 mls/hr Pantoprazole Sodium (Protonix Inj) 40 mg IVP DAILY [facility] Last Admin: 02/24/18 09:45 Dose: 40 mg - Labs Labs: 02/25/18 06:10 02/25/18 06:10
[2018-02-25] MEDS: Enoxaparin 30 mg Syringe SC SCH (09:47)
[2018-02-25] MEDS: Ciprofloxacin 400mg/200ml D5W 400 MG/200 ML BAG IVPB SCH ×2 (09:48→21:12)
[2018-02-25 11:00] LABS: INTRACELLULAR PARASITE NEGATIVE (NEGATIVE)
--- NOTE | 2018-02-25 13:08 | CARD ---
APPROVED REPORT Date of service: 02/22/2018 EKG Measurement Heart [id number] <Conclusion> Sinus tachycardia Rightward axis Nonspecific ST abnormality Abnormal ECG
--- NOTE | 2018-02-25 19:18 | CP.PCM.PN ---
Subjective - Date & Time of Evaluation Date of Evaluation: 02/25/18 Time of Evaluation: 19:17 - Subjective Subjective: Patient seen and evaluated denies chest pain and dyspnea Salmonella sepsis Patient for YVONNE tomorrow Review of Systems - Constitutional Constitutional: Fever. absent: Chills - EENT Eyes: absent: Blurred Vision, Change in Vision Nose/Mouth/Throat: absent: Nasal Congestion, Nasal Discharge, Sore Throat - Cardiovascular Cardiovascular: absent: Chest Pain, Dyspnea, Edema, Leg Edema, Lightheadedness, Pedal Edema - Respiratory Respiratory: absent: Cough, Dyspnea, Wheezing, Chest Congestion - Gastrointestinal Gastrointestinal: absent: Abdominal Pain, Constipation, Diarrhea, Nausea, Vomiti ng - Genitourinary Genitourinary: absent: Dysuria, Hematuria, Urinary Frequency, Urinary Urgency - Musculoskeletal Musculoskeletal: absent: Back Pain, Numbness, Stiffness, Tingling - Integumentary Integumentary: absent: Acne, Lesions, Rash - Neurological Neurological: absent: Dizziness, Syncope, Tingling, Weakness - Psychiatric Psychiatric: absent: Anxiety, Depression Physical Exam - Constitutional Appears: No Acute Distress - Head Exam Head Exam: ATRAUMATIC, NORMOCEPHALIC - ENT Exam ENT Exam: Mucous Membranes Moist - Respiratory Exam Respiratory Exam: Clear to Auscultation Bilateral. absent: Accessory Muscle Use, Rales, Rhonchi, Wheezes, Respiratory Distress - Cardiovascular Exam Cardiovascular Exam: REGULAR RHYTHM, +S1, +S2. absent: Diastolic murmur, Gallop, Rubs, Systolic Murmur - GI/Abdominal Exam GI & Abdominal Exam: Normal Bowel Sounds, Soft. absent: Distended, Firm, Guarding, Rigid, Tenderness - Extremities Exam Extremities exam: Negative for: pedal edema, tenderness - Neurological Exam Neurological exam: Alert, Oriented x3 - Psychiatric Exam Psychiatric exam: Normal Affect, Normal Mood - Skin Skin Exam: Dry, Intact, Normal Color Assessment and Plan - Assessment and Plan (Free Text) Assessment: Patient seen and evaluated with the medical management trainer. 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 Eventhough positive Trops likely from myocardial inflammation, Will consider cardiac cath prior to discharge for a definitive diagnosis Objective - Vital Signs/Intake and Output Vital Signs (last 24 hours): Temp Pulse Resp BP Pulse Ox 99.8 F H 84 20 113/74 98 02/25/18 18:00 02/25/18 18:00 02/25/18 18:00 02/25/18 18:00 02/25/18 18:00 Intake and Output: 02/25/18 02/26/18 18:59 06:59 Intake Total 1860 Output Total 960 Balance 900 - Medications Medications: Current Medications Acetaminophen (Tylenol 325mg Tab) 650 mg PO Q6 PRN PRN Reason: Temperature Last Admin: 02/25/18 07:21 Dose: 650 mg Enoxaparin Sodium (Lovenox) 30 mg SC DAILY [facility] Last Admin: 02/25/18 09:47 Dose: 30 mg Sodium Chloride (Sodium Chloride 0.9%) 1,000 mls @ 100 mls/hr IV .Q10H [facility] Last Admin: 02/25/18 16:58 Dose: 100 mls/hr Meropenem 2,000 mg/ Sodium (Chloride) 100 mls @ 100 mls/hr IVPB Q8H [facility]; Protocol Last Admin: 02/25/18 12:09 Dose: 100 mls/hr Ciprofloxacin (Cipro 400mg/200ml Dsw) 400 mg in 200 mls @ 133 mls/hr IVPB Q12 [facility]; Protocol Last Admin: 02/25/18 09:48 Dose: 133 mls/hr Pantoprazole Sodium (Protonix Inj) 40 mg IVP DAILY [facility] Last Admin: 02/25/18 09:47 Dose: 40 mg - Labs Labs: 02/25/18 06:10 02/25/18 06:10
[2018-02-26] MEDS: MEROPENEM IVPB SCH ×2 (03:47→12:16)
[2018-02-26] MEDS: SODIUM CHLORIDE 0.9% IVPB SCH ×2 (03:47→12:16)
[2018-02-26] MEDS: Sodium Chloride 0.9% 1,000 ML IV SCH (06:14)
[2018-02-26] MEDS: Ciprofloxacin 400mg/200ml D5W 400 MG/200 ML BAG IVPB SCH (09:41)
--- NOTE | 2018-02-26 12:50 | CP.PCM.PN ---
Subjective - Date & Time of Evaluation Date of Evaluation: 02/26/18 Time of Evaluation: 12:44 - Subjective Subjective: INFECTIOUS DISEASE ICU PROGRESS NOTES AL WILLAMS MD, FACP ICU #[id number] 02/26/2018 CHART REVIEWED PT EXAMINED CASE DISCUSSED I PERSONALLY WENT AND DISCUSSED WITH ESTEBAN SUTTON CONCERNING KB SENSITIVITES OF THE [employer]PECIES TYPHOID. I BEN TO THE ICU STAFF XIOMY THE RESULTS UNTIL WE CAN REVIEW THEM IN THE [employer]. PT IS RESPONDING NICELY, STILL WITH SOME TEMPS, BUT LESS AND LESS AND NO DIARRHEA. FOR YVONNE TODAY TO EVALAUTE HIS CARDIAC STATUS/VALVES, ETC. LUNGS CLEAR COR RR ABD SOFT EXT NO PERIPHERAL MANIFESTATIONS OF EMBOLIC PHENOMENON. CHANGE AB TO ROCEPHIN 2GM Q 12 AND PO CIPRO BID FOR NOW. LENGTH OF TREATMENT TO FOLLOW. QUESTION OF HIS COMPLIANCE/ADHERENCE ONCE HE LEAVES THE HOSPITAL IS NOTED. Objective - Vital Signs/Intake and Output Vital Signs (last 24 hours): Temp Pulse Resp BP Pulse Ox 99.1 F 84 18 107/72 98 02/26/18 08:00 02/26/18 08:00 02/26/18 08:00 02/26/18 08:00 02/26/18 08:00 Intake and Output: 02/26/18 02/26/18 06:59 18:59 Intake Total 2250 0 Output Total 2600 400 Balance -350 -400 - Medications Medications: Current Medications Acetaminophen (Tylenol 325mg Tab) 650 mg PO Q6 PRN PRN Reason: Temperature Last Admin: 02/25/18 20:23 Dose: 650 mg Ciprofloxacin (Cipro) 750 mg PO BID [facility]; Protocol Enoxaparin Sodium (Lovenox) 30 mg SC DAILY [facility] Last Admin: 02/25/18 09:47 Dose: 30 mg Sodium Chloride (Sodium Chloride 0.9%) 1,000 mls @ 100 mls/hr IV .Q10H [facility] Last Admin: 02/26/18 06:14 Dose: 100 mls/hr Pantoprazole Sodium (Protonix Inj) 40 mg IVP DAILY [facility] Last Admin: 02/26/18 09:41 Dose: 40 mg - Labs Labs: 02/25/18 06:10 02/25/18 06:10
[2018-02-26] MEDS ORDERED: Lidocaine 4% (Laryng-O-Jet) Kit MM ONE (13:06)
[2018-02-26] MEDS ORDERED: Propofol 10 mg/ml Inj (20 ML) ONE (13:12)
[2018-02-26] MEDS ORDERED: Midazolam 2 MG/2 ML VIAL ONE (13:12)
[2018-02-26] MEDS: Enoxaparin 30 mg Syringe SC SCH (14:30)
[2018-02-26] MEDS: cefTRIAXone 2 GM in Sodium Chloride 0.9% 100 ML IVPB SCH (14:30)
--- NOTE | 2018-02-26 18:22 | CP.PCM.PN ---
Subjective - Date & Time of Evaluation Date of Evaluation: 02/26/18 Time of Evaluation: 18:22 - Subjective Subjective: Patient today had transesophageal echocardiogram. Results were suspected negative. Patient has no fever since morning today. We will continue to monitor. Will discuss with infectious disease tomorrow about the discharge plan. Patient needs to have at least afebrile for the next 24 hours and we will decide thank you Objective - Vital Signs/Intake and Output Vital Signs (last 24 hours): Temp Pulse Resp BP Pulse Ox 98.9 F 81 17 110/57 L 99 02/26/18 13:30 02/26/18 13:30 02/26/18 13:30 02/26/18 13:30 02/26/18 13:30 Intake and Output: 02/26/18 02/26/18 06:59 18:59 Intake Total 2250 0 Output Total 2600 400 Balance -350 -400 - Medications Medications: Current Medications Acetaminophen (Tylenol 325mg Tab) 650 mg PO Q6 PRN PRN Reason: Temperature Last Admin: 02/25/18 20:23 Dose: 650 mg Ciprofloxacin (Cipro) 750 mg PO BID [facility]; Protocol Enoxaparin Sodium (Lovenox) 30 mg SC DAILY [facility] Last Admin: 02/26/18 14:30 Dose: 30 mg Sodium Chloride (Sodium Chloride 0.9%) 1,000 mls @ 100 mls/hr IV .Q10H [facility] Last Admin: 02/26/18 06:14 Dose: 100 mls/hr Ceftriaxone Sodium 2 gm/ (Sodium Chloride) 100 mls @ 100 mls/hr IVPB Q12H [facility]; Protocol Last Admin: 02/26/18 14:30 Dose: 100 mls/hr Pantoprazole Sodium (Protonix Inj) 40 mg IVP DAILY [facility] Last Admin: 02/26/18 09:41 Dose: 40 mg - Labs Labs: 02/25/18 06:10 02/25/18 06:10
--- NOTE | 2018-02-26 22:55 | CARD ---
APPROVED REPORT Date of service: 02/26/2018 EXAM: Transesophageal echocardiogram with color flow Doppler. INDICATION R/O VEGETATION Mitral Valve E/A ratio0.0 TDI E/Lateral E'0.0E/Medial E'0.0 Reason For Test : Rule out endocarditis. PROCEDURE After obtaining informed consent, patient underwent transesophageal echo in the ICU/CCU. Type of Sedation : Sedation was provided by anesthesiologist. Sedation was achieved with intravenously. Transesophageal probe was inserted and advanced into esophagus without difficulty. The YVONNE was performed without complications. Throughout the procedure, the blood pressure, pulse oximetry, cardiac rhythm, and rate were monitored. The patient tolerated the procedure without adverse effects. Recovery from conscious sedation was uneventful and vital signs were stable. LEFT VENTRICLE The left ventricle is normal size. There is normal left ventricular wall thickness. The left ventricular function is normal. The left ventricular ejection fraction is within the normal range. There is normal LV segmental wall motion. No left ventricle thrombus noted on this study. RIGHT VENTRICLE The right ventricle is normal size. There is normal right ventricular wall thickness. The right ventricular systolic function is normal. ATRIA The left atrium size is normal. The right atrium size is normal. AORTIC VALVE The aortic valve is normal in structure. No aortic regurgitation is present. There is no aortic valvular stenosis. There is no aortic valvular vegetation. MITRAL VALVE The mitral valve leaflets are thickened. A mild mitral valve prolapse is present. TRICUSPID VALVE The tricuspid valve is normal in structure. There is no tricuspid valve regurgitation noted. <Conclusion> No Valvular Vegitation noted
--- NOTE | 2018-02-26 23:45 | CP.PCM.PN ---
Subjective - Date & Time of Evaluation Date of Evaluation: 02/26/18 Time of Evaluation: 18:00 - Subjective Subjective: Patient seen and evaluated Denies chest pain and dyspnea s/p YVONNE: No evidence of Endocarditis Objective - Vital Signs/Intake and Output Vital Signs (last 24 hours): Temp Pulse Resp BP Pulse Ox 99.3 F 86 20 112/76 98 02/26/18 20:00 02/26/18 20:00 02/26/18 20:00 02/26/18 20:00 02/26/18 20:00 Intake and Output: 02/26/18 02/27/18 18:59 06:59 Intake Total 1600 580 Output Total 1300 600 Balance 300 -20 - Medications Medications: Current Medications Acetaminophen (Tylenol 325mg Tab) 650 mg PO Q6 PRN PRN Reason: Temperature Last Admin: 02/25/18 20:23 Dose: 650 mg Ciprofloxacin (Cipro) 750 mg PO BID [facility]; Protocol Last Admin: 02/26/18 19:07 Dose: 750 mg Enoxaparin Sodium (Lovenox) 30 mg SC DAILY [facility] Last Admin: 02/26/18 14:30 Dose: 30 mg Ceftriaxone Sodium 2 gm/ (Sodium Chloride) 100 mls @ 100 mls/hr IVPB Q12H [facility]; Protocol Last Admin: 02/26/18 14:30 Dose: 100 mls/hr Pantoprazole Sodium (Protonix Inj) 40 mg IVP DAILY [facility] Last Admin: 02/26/18 09:41 Dose: 40 mg - Labs Labs: 02/25/18 06:10 02/25/18 06:10
[2018-02-27] MEDS: cefTRIAXone 2 GM in Sodium Chloride 0.9% 100 ML IVPB SCH ×2 (00:35→17:02)
[2018-02-27 06:29] LABS: BASO % 0.6 % (0.0-2.0); EOS # 0.2 K/uL (0.0-0.7); EOS % 3.9 % (0.0-4.0); HEMOGLOBIN 13.3 g/dL (12.0-18.0); LYMPH # 1.9 K/uL (1.0-4.3); MEAN CELL VOLUME 79.7 fL (80.0-94.0); MEAN CORPUSCULAR HGB CONC 35.2 g/dL (33.0-37.0); MEAN PLATELET VOLUME 9.7 fL (7.2-11.7); MONO # 0.6 K/uL (0.0-0.8); NEUT # 2.5 K/uL (1.8-7.0); NEUT % 47.5 % (50.0-75.0); NRBC % 0.2 % (0.0-2.0); RBC 4.73 Mil/uL (4.40-5.90); RED CELL DISTRIBUTION WIDTH 12.9 % (11.5-14.5); WHITE BLOOD COUNT 5.2 K/uL (4.8-10.8)
[2018-02-27 06:43] LABS: ALB/GLOB RATIO 1.1 (1.0-2.1); ALBUMIN 3.7 g/dL (3.5-5.0); ALT/SGPT 369 U/L (21-72); AST/SGOT 573 U/L (17-59); BLOOD UREA NITROGEN 10 mg/dL (9-20); CALCIUM 8.3 mg/dl (8.6-10.4); GFR NON-AFRICAN AMERICAN > 60
[2018-02-27] MEDS: Enoxaparin 30 mg Syringe SC SCH (10:01)
[2018-02-27 17:00] LABS: ALB/GLOB RATIO 1.2 (1.0-2.1); ALBUMIN 3.8 g/dL (3.5-5.0); ALT/SGPT 438 U/L (21-72); AST/SGOT 572 U/L (17-59); BLOOD UREA NITROGEN 14 mg/dL (9-20); CALCIUM 8.4 mg/dl (8.6-10.4); GFR NON-AFRICAN AMERICAN > 60
--- NOTE | 2018-02-27 21:08 | CP.PCM.PN ---
Subjective - Date & Time of Evaluation Date of Evaluation: 02/27/18 Time of Evaluation: 21:06 - Subjective Subjective: INFECTIOUS DISEASE PROGRESS NOTES AL WILLAMS MD, FACP ICU #[id number] CHART REVIEWED CASE DISCUSSED PT REMAINS AFEBRILE BUT LFTS ARE ELEVATED PLAN IS TO OBSERVE, DECREASE ROCEPHIN 2GM IVPB OD CONSIDER PO'S SOON WHEN STABLE. Objective - Vital Signs/Intake and Output Vital Signs (last 24 hours): Temp Pulse Resp BP Pulse Ox 99.6 F 82 18 100/60 95 02/27/18 16:00 02/27/18 08:00 02/27/18 12:00 02/27/18 16:00 02/27/18 08:00 Intake and Output: 02/27/18 02/28/18 18:59 06:59 Intake Total 780 Output Total 1300 Balance -520 - Medications Medications: Current Medications Acetaminophen (Tylenol 325mg Tab) 650 mg PO Q6 PRN PRN Reason: Temperature Last Admin: 02/25/18 20:23 Dose: 650 mg Ciprofloxacin (Cipro) 750 mg PO BID [facility]; Protocol Last Admin: 02/27/18 17:06 Dose: 750 mg Enoxaparin Sodium (Lovenox) 30 mg SC DAILY [facility] Last Admin: 02/27/18 10:01 Dose: 30 mg Ceftriaxone Sodium 2 gm/ (Sodium Chloride) 100 mls @ 100 mls/hr IVPB Q12H [facility]; Protocol Last Admin: 02/27/18 17:02 Dose: 100 mls/hr Pantoprazole Sodium (Protonix Inj) 40 mg IVP DAILY [facility] Last Admin: 02/27/18 10:01 Dose: 40 mg - Labs Labs: 02/27/18 06:10 02/27/18 16:27
[2018-02-27 21:23] VITALS: PULSE 84; RESP 198
--- NOTE | 2018-02-27 22:08 | CP.PCM.PN ---
Subjective - Date & Time of Evaluation Date of Evaluation: 02/27/18 Time of Evaluation: 15:10 - Subjective Subjective: Patient seen and evaluated Denies chest pain and dyspnea Wants to go home Objective - Vital Signs/Intake and Output Vital Signs (last 24 hours): Temp Pulse Resp BP Pulse Ox 98.8 F 84 198 H 104/67 97 02/27/18 20:00 02/27/18 20:00 02/27/18 20:00 02/27/18 20:00 02/27/18 20:00 Intake and Output: 02/27/18 02/28/18 18:59 06:59 Intake Total 780 Output Total 1300 Balance -520 - Medications Medications: Current Medications Acetaminophen (Tylenol 325mg Tab) 650 mg PO Q6 PRN PRN Reason: Temperature Last Admin: 02/25/18 20:23 Dose: 650 mg Ciprofloxacin (Cipro) 750 mg PO BID [facility]; Protocol Last Admin: 02/27/18 17:06 Dose: 750 mg Enoxaparin Sodium (Lovenox) 30 mg SC DAILY [facility] Last Admin: 02/27/18 10:01 Dose: 30 mg Ceftriaxone Sodium (Rocephin 2 Gm Ivpb) 2 gm in 100 mls @ 100 mls/hr IVPB Q24H [facility]; Protocol Pantoprazole Sodium (Protonix Inj) 40 mg IVP DAILY [facility] Last Admin: 02/27/18 10:01 Dose: 40 mg - Labs Labs: 02/27/18 06:10 02/27/18 16:27
[2018-02-28 05:28] LABS: BASO % 0.6 % (0.0-2.0); EOS # 0.2 K/uL (0.0-0.7); EOS % 3.9 % (0.0-4.0); HEMOGLOBIN 13.3 g/dL (12.0-18.0); LYMPH # 2.1 K/uL (1.0-4.3); MEAN CELL VOLUME 80.8 fL (80.0-94.0); MEAN CORPUSCULAR HEMOGLOBIN 27.2 pg (27.0-31.0); MEAN CORPUSCULAR HGB CONC 33.7 g/dL (33.0-37.0); MEAN PLATELET VOLUME 8.8 fL (7.2-11.7); MONO # 0.7 K/uL (0.0-0.8); MONO % 11.7 % (0.0-10.0); NEUT # 2.7 K/uL (1.8-7.0); NEUT % 46.8 % (50.0-75.0); RBC 4.87 Mil/uL (4.40-5.90); RED CELL DISTRIBUTION WIDTH 12.8 % (11.5-14.5); WHITE BLOOD COUNT 5.7 K/uL (4.8-10.8)
[2018-02-28 05:51] LABS: ALB/GLOB RATIO 1.2 (1.0-2.1); ALBUMIN 3.6 g/dL (3.5-5.0); ALT/SGPT 420 U/L (21-72); AST/SGOT 392 U/L (17-59); BLOOD UREA NITROGEN 13 mg/dL (9-20); GFR NON-AFRICAN AMERICAN > 60
--- NOTE | 2018-02-28 07:33 | CP.PCM.PN ---
Subjective - Date & Time of Evaluation Date of Evaluation: 02/27/18 Time of Evaluation: 07:33 - Subjective Subjective: Patient has no fever now, he is feeling comfortable. But his liver enzymes is elevated, will monitor it tomorrow, if stable possible discharge planned tomorrow Objective - Vital Signs/Intake and Output Vital Signs (last 24 hours): Temp Pulse Resp BP Pulse Ox 98.7 F 84 198 H 104/67 97 02/28/18 04:00 02/27/18 20:00 02/27/18 20:00 02/27/18 20:00 02/27/18 20:00 Intake and Output: 02/28/18 02/28/18 06:59 18:59 Output Total 300 Balance -300 - Medications Medications: Current Medications Acetaminophen (Tylenol 325mg Tab) 650 mg PO Q6 PRN PRN Reason: Temperature Last Admin: 02/25/18 20:23 Dose: 650 mg Ciprofloxacin (Cipro) 750 mg PO BID CARIDAD; Protocol Last Admin: 02/27/18 17:06 Dose: 750 mg Enoxaparin Sodium (Lovenox) 30 mg SC DAILY CARIDDA Last Admin: 02/27/18 10:01 Dose: 30 mg Ceftriaxone Sodium (Rocephin 2 Gm Ivpb) 2 gm in 100 mls @ 100 mls/hr IVPB Q24H CARIDAD; Protocol Pantoprazole Sodium (Protonix Inj) 40 mg IVP DAILY [facility] Last Admin: 02/27/18 10:01 Dose: 40 mg - Labs Labs: 02/28/18 05:20 02/28/18 05:20
--- NOTE | 2018-02-28 07:34 | CP.PCM.DIS ---
Provider - Provider Date of Admission: 02/22/18 18:42 Attending physician: Lorie Abreu MD Consults: 02/22/18 21:04 Cardiology Consult Routine Comment: Consulting Provider: Noe Mahajan Consulting Physician: Noe Mahajan Reason for Consult: high trp Infectious Disease Consult Routine Comment: Consulting Provider: Rosette Loomis Consulting Physician: Rosette Loomis Reason for Consult: fever Time Spent in preparation of Discharge (in minutes): 45 Hospital Course - Lab Results Lab Results: Micro Results 02/25/18 05:59 Blood-Venous Blood Culture - Preliminary NO GROWTH AFTER 3 DAYS 02/23/18 00:31 Blood-Venous Blood Culture - Final NO GROWTH AFTER 5 DAYS 02/23/18 00:31 Blood-Venous Gram Stain - Final TEST NOT PERFORMED 02/23/18 21:15 Blood-Venous Blood Culture - Preliminary NO GROWTH AFTER 4 DAYS 02/23/18 20:15 Blood-Venous Blood Culture - Preliminary NO GROWTH AFTER 4 DAYS 02/24/18 12:00 Blood-Venous Blood Culture - Preliminary NO GROWTH AFTER 3 DAYS 02/24/18 12:30 Blood-Venous Blood Culture - Preliminary NO GROWTH AFTER 3 DAYS 02/25/18 12:30 Stool Stool Culture - Final NO SALMONELLA, SHIGELLA OR CAMPYLOBACTER ISOLATED. 02/25/18 06:45 Blood-Venous Blood Culture - Preliminary NO GROWTH AFTER 48 HOURS 02/22/18 21:13 Blood Blood Culture - Final Salmonella Typhi 02/22/18 21:13 Blood Gram Stain - Final 02/22/18 16:53 Blood-Venous Blood Culture - Final Salmonella Typhi 02/22/18 16:53 Blood-Venous Gram Stain - Final 02/22/18 16:35 Blood-Venous Blood Culture - Preliminary Salmonella Typhi 02/22/18 16:35 Blood-Venous Gram Stain - Final 02/23/18 06:59 Naris MRSA Culture - Final MRSA NOT DETECTED 02/23/18 06:59 Urine,Clean Catch Urine Culture - Final No Growth (<1,000 CFU/ML) Most Recent Lab Values WBC 5.7 K/uL (4.8-10.8) 02/28/18 05:20 RBC 4.87 Mil/uL (4.40-5.90) 02/28/18 05:20 Hgb 13.3 g/dL (12.0-18.0) 02/28/18 05:20 Hct 39.4 % (35.0-51.0) 02/28/18 05:20 MCV 80.8 fL (80.0-94.0) 02/28/18 05:20 MCH 27.2 pg (27.0-31.0) 02/28/18 05:20 MCHC 33.7 g/dL (33.0-37.0) 02/28/18 05:20 RDW 12.8 % (11.5-14.5) 02/28/18 05:20 Plt Count 159 K/uL (130-400) 02/28/18 05:20 MPV 8.8 fL (7.2-11.7) 02/28/18 05:20 Neut % (Auto) 46.8 % (50.0-75.0) L 02/28/18 05:20 Lymph % (Auto) 37.0 % (20.0-40.0) 02/28/18 05:20 [place] % (Auto) 11.7 % (0.0-10.0) H 02/28/18 05:20 Eos % (Auto) 3.9 % (0.0-4.0) 02/28/18 05:20 Baso % (Auto) 0.6 % (0.0-2.0) 02/28/18 05:20 Neut # (Auto) 2.7 K/uL (1.8-7.0) 02/28/18 05:20 Lymph # (Auto) 2.1 K/uL (1.0-4.3) 02/28/18 05:20 [place] # (Auto) 0.7 K/uL (0.0-0.8) 02/28/18 05:20 Eos # (Auto) 0.2 K/uL (0.0-0.7) 02/28/18 05:20 Baso # (Auto) 0.0 K/uL (0.0-0.2) 02/28/18 05:20 Sodium 134 mmol/L (132-148) 02/28/18 05:20 Potassium 3.5 mmol/L (3.6-5.2) L 02/28/18 05:20 Chloride 100 mmol/L (98-107) 02/28/18 05:20 Carbon Dioxide 28 mmol/L (22-30) 02/28/18 05:20 Anion Gap 10 (10-20) 02/28/18 05:20 BUN 13 mg/dL (9-20) 02/28/18 05:20 Creatinine 0.7 mg/dL (0.8-1.5) L 02/28/18 05:20 Est GFR ( Amer) > 60 02/28/18 05:20 Est GFR (Non-Af Amer) > 60 02/28/18 05:20 POC Glucose (mg/dL) 110 mg/dL (65-110) 02/23/18 07:28 Random Glucose 92 mg/dL (75-110) 02/28/18 05:20 Lactic Acid 1.4 mmol/L (0.7-2.1) 02/23/18 06:59 Calcium 8.0 mg/dl (8.6-10.4) L 02/28/18 05:20 Phosphorus 3.0 mg/dL (2.5-4.5) 02/27/18 06:10 Magnesium 2.4 mg/dL (1.6-2.3) H 02/27/18 06:10 Total Bilirubin 0.9 mg/dL (0.2-1.3) 02/28/18 05:20 AST 392 U/L (17-59) H D 02/28/18 05:20 ALT 420 U/L (21-72) H 02/28/18 05:20 Alkaline Phosphatase 169 U/L (38-126) H 02/28/18 05:20 Total Creatine Kinase 50 U/L (55-170) L 02/23/18 00:31 CK-MB (Mass) < 0.22 ng/mL (0.0-3.38) 02/23/18 00:31 Troponin I 0.2200 ng/mL (0.00-0.120) H* 02/23/18 06:59 NT-Pro-B Natriuret Pep 757 pg/mL (0-450) H 02/22/18 16:40 Total Protein 6.8 g/dL (6.3-8.3) 02/28/18 05:20 Albumin 3.6 g/dL (3.5-5.0) 02/28/18 05:20 Globulin 3.1 gm/dL (2.2-3.9) 02/28/18 05:20 Albumin/Globulin Ratio 1.2 (1.0-2.1) 02/28/18 05:20 Urine Color Yellow (YELLOW) 02/23/18 06:59 Urine Clarity Clear (Clear) 02/23/18 06:59 Urine pH 6.0 (5.0-8.0) 02/23/18 06:59 Ur Specific [place] 1.011 (1.003-1.030) 02/23/18 06:59 Urine Protein Negative mg/dL (NEGATIVE) 02/23/18 06:59 Urine Glucose (UA) Normal mg/dL (Normal) 02/23/18 06:59 Urine Ketones Trace mg/dL (NEGATIVE) 02/23/18 06:59 Urine Blood 1+ (NEGATIVE) H 02/23/18 06:59 Urine Nitrate Negative (NEGATIVE) 02/23/18 06:59 Urine Bilirubin Negative (NEGATIVE) 02/23/18 06:59 Urine Urobilinogen 4.0 mg/dL (0.2-1.0) 02/23/18 06:59 Ur Leukocyte Esterase Neg [place]/uL (Negative) 02/23/18 06:59 Urine WBC (Auto) 2 /hpf (0-5) 02/23/18 06:59 Urine RBC (Auto) 2 /hpf (0-3) 02/23/18 06:59 RPR Nonreactive (NONREACTIVE) 02/24/18 06:46 Hepatitis A IgM Ab Negative (NEGATIVE) 02/24/18 06:46 Hepatitis A Ab Total Antibody pos (NEGATIVE) 02/24/18 06:46 Hep Bs Antigen Negative (NEGATIVE) 02/24/18 06:46 Hep Bs Antibody Negative (NEGATIVE) 02/24/18 06:46 Hep B Core IgM Ab Negative (NEGATIVE) 02/24/18 06:46 Hepatitis C Antibody Non reactive (Non Reactive) 02/24/18 08:24 Hep C Ab Signal/Cutoff 0.03 (<1.0) 02/24/18 08:24 HIV 1&2 Antibody Screen Negative (NEGATIVE) 02/24/18 06:46 Malaria Source See note (NEGATIVE) 02/22/18 16:40 Blood Parasites Smear Negative (NEGATIVE) 02/25/18 06:10 Salmonella H Type A Positive H 02/22/18 16:40 Salmonella H Type B Positive H 02/22/18 16:40 Salmonella H Type D Positive H 02/22/18 16:40 Salmonella O Type D Positive H 02/22/18 16:40 Salmonella O Type Vi Equivocal H 02/22/18 16:40 - Hospital Course Hospital Course: Is chief complaint: Fever intermittent for 10 days duration. HPI: 27-year-old male with no significant past medical history From [place] recently weeks ago. After he came to the [place], started having some severe pain in the abdomen, nausea vomiting. He also had a fever at the time. He went to the urgent care, given antibiotic but the patient was not taking. He only taking that medicine for fever. He started having increasing fever again. Intermittent fever. Associate with chills and sweating. He also had a fever here today with the. Patient also has some headache Neck pain noted now. fever noted The past medical history No surgical history Denies any alcohol No smoking No family history A review of systems: Headache noted history of nausea vomiting noted. And recurrent fever chills no urinary discomfort. Yellow discoloration urine noted On examination: Patient is currently sweating. Chest clear Abdomen soft Nontender Edema negative Tachycardia noted. 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 He was admitted to the telemetry initially because of the tachycardia. Patient continues to have a fever. Initially started for possible Salmonella infection. And normal broad-spectrum antibiotic started. Patient gradually got better after 3 days to 5 days. But he persistently having fever. Blood culture was showing evidence of Salmonella typhus. The organism was sensitive to antibiotic. Because of the echocardiogram evidence of valvular disease, transesophageal echocardiogram was done. Transesophageal echocardiogram is negative. Patient fever improved markedly. Currently he is doing well. Meanwhile liver enzymes was noted to be elevated. Which was monitored, and today the labs improved markedly. Echocardiogram negative CAT scan of the abdomen showed no evidence of colitis. Also inflammatory changes noted. But now he is feeling well, no fever, no diarrhea. Can be discharged home today. He will take antibiotic as an outpatient for at least 10days And will follow the patient Discharge Exam - Head Exam Head Exam: ATRAUMATIC, NORMOCEPHALIC Discharge Plan - Discharge Medications Prescriptions: Ciprofloxacin HCl [Cipro] 750 mg PO BID 14 Days tablet - Follow Up Plan Condition: GOOD Disposition: HOME/ ROUTINE Instructions: Fever of Unknown Origin (DC), Typhoid and Paratyphoid Fever (DC), Malaria (DC) Additional Instructions: tylenol 1000 mg or Motrin/Advil 600 mg every 6 hours as needed for fevers Continue Cipro 750 mg twice a day for 2 weeks follow-up Blood cultures, blood smears for parasites and Salmonella titers w Dr. Abreu's office. Referrals: Lorie Abreu MD [Staff Provider] -
[2018-02-28 08:39] VITALS: BP 110/69; TEMP 98.6; O2SAT 98
[2018-02-28] MEDS ORDERED: cefTRIAXone 2 GM IN NS 2 GM/100 ML BAG IVPB SCH (10:00)
== END 2018-02-28 09:30 | disposition home or self-care (01) | DRG 871 ==
LOC: C.ER 14:49 → C.9E 18:42 → C.9I 02-23 03:35
PROVIDERS: ADMIT Internal Medicine; ATTEND Internal Medicine
DX: A02.1 Salmonella sepsis (principal); I21.4 Non-ST elevation (NSTEMI) myocardial infarction; B54 Unspecified malaria; Z16.24 Resistance to multiple antibiotics